=== PATIENT | male | born 1980 | race African-American/Black ===

== ENCOUNTER 2022-12-16 21:23 | Emergency (ER) | payer SELFPAY ==
--- OUTSIDE RECORDS SUMMARY | 2022-12-16 21:39 | XMS REPORT | Continuity of Care Document ---
:1980 Author Organization [facility] t Address [address] [place] [address] Care Team Providers Name Role Phone Marine Pérez Attending Clinician Marine CALIX Attending Clinician Unavailable Problems This patient has no known problems. Allergies, Adverse Reactions, Alerts Allergy Allergy Status Severity Reaction(s) Onset Inactive Treating Comm ents Source Name Type Date Date Clinician NO KNOWN Drug Active Univers ALLERGIE Class ity of S [facility] Social History Social Habit Start Date Stop Date Quantity Comments Source [facility] to SARS-[facility]-2 Not sure [facility] [place] [facility] Smoking Status Start Date Stop Date Source Unknown if [facility] Medications Ordered Filled Start Stop Current Ordering Indication Dosage Frequency Signature Comments Components Source Medication Medication Date Date Medication? Clinician (SIG) Name Name ibuprofen 2019-0 Yes [id number] 600mg Take 1 Univers 600 mg 6-20 tablet by ity of tablet 00:00: mouth [place] 00 every 6 Medical (six) Branch hours as needed for Pain (scale 4-6). cyclobenzap 2019-0 Yes [id number] 10mg Take 1 Univers rine 10 mg 6-20 tablet by ity of tablet 00:00: mouth 3 [place] 00 (three) Medical times Branch daily. Vital Signs Vital Name Observation Time Observation Value Comments Source Systolic blood 2020-02-08 01:52:00 178 mm[Hg] Univer sity of pressure [facility] Diastolic blood 2020-02-08 01:52:00 105 mm[Hg] Unive rsity of [facility] Heart rate 2020-02-08 01:52:00 100 /min [facility] Body temperature 2020-02-08 01:52:00 37.11 [facility]i [facility] Respiratory rate 2020-02-08 01:52:00 20 /min [facility] Body height 2020-02-08 01:52:00 193 cm Universi [facility] Body weight 2020-02-08 01:52:00 128.822 kg Universi [facility] BMI 2020-02-08 01:52:00 34.57 kg[facility]m2 [facility] saturation in 2020-02-08 01:52:00 100 /min [facility] Arterial blood by [facility] Pulse oximetry Branch Procedures Procedure Date / Time Performed Performing Clinician Sour e CONSENT/REFUSAL FOR 2020-02-08 01:37:30 Doctor Unassigned, No [facility] DIAGNOSIS AND Name [facility] TREATMENT NOTICE OF PRIVACY 2020-02-08 01:37:21 Doctor Unassigned, No Univ [facility] Name Medical [place] Encounters Start End Encounter Admission Attending Care Care Encounter Source Date/Time Date/Time Type Type Clinicians Facility Department ID 2020-02-07 2020-02-07 Emergency Marine Calix [facility] [id number] Univers 20:55:09 22:30:00 Frieda [place] [id number] i ty [facility] [id number] [facility] [id number] [facility] 084 Branch 2020-02-07 2020-02-07 Emergency X Marine CALIX [facility] ERT [id number] Univers 20:55:09 20:55:09 ity of [facility] Results This patient has no known results.
[2022-12-16] MEDS ORDERED: lisinopriL 20 MG TAB ONE (21:58)
[2022-12-16] MEDS ORDERED: NA CHLORIDE 0.9% 1,000 ML ONE (21:58)
[2022-12-16] MEDS ORDERED: ASPIRIN 325 MG TAB ONE (21:58)
[2022-12-16 22:27] LABS: Absolute Lymphocytes (CBC) 2.8 K/uL (0.7-4.9); Hematocrit 41.7 % (39.6-49.0); Lymphocytes % 36.5 % (15.3-44.8); MCV 93.5 fL (80-100); RBC Red Blood Cell Count 4.46 M/uL (4.33-5.43)
--- NOTE | 2022-12-16 22:41 | RAD REPORT ---
EXAM DESCRIPTION: RADChest Single View12/16/2022 10:24 pm CLINICAL HISTORY: CHEST PAIN COMPARISON: Chest Single View dated 11/25/2022 TECHNIQUE: Portable AP view of the chest. FINDINGS: The lungs are clear. No pneumothorax or effusion. The cardiomediastinal contours are unrem arkable. IMPRESSION: No acute cardiopulmonary process.
[2022-12-17 00:06] LABS: Protime INR 1.08
[2022-12-17 00:18] LABS: Albumin 3.4 g/dL (3.4-5.0); Bilirubin Direct 0.2 mg/dL (0-0.2); Bilirubin Total 0.7 mg/dL (0.2-1.0); Potassium 3.6 mEq/L (3.5-5.1); Protein, Total 6.6 g/dL (6.4-8.2); Troponin High Sensitivity 11.9 pg/mL (<58.9)
--- NOTE | 2022-12-17 01:49 | ER ---
Nurse's Notes [facility] Name: Sam Dejesus Age: 42 yrs Sex: Male : 1980 Arrival Date: 12/16/2022 Time: 21:23 Bed Treatment Private MD: Diagnosis: Essential (primary) hypertension;Noncardiac chest Presentation: 12/16 21:44 Chief complaint: Patient states: C/o of left side chest pain and SOB that started ll3 today. Pain radiated down to left leg. Onset of symptoms was December 16, 2022. 21:44 Method Of Arrival: Law Enforcement: [employer] ll3 21:44 Acuity: [place] 3 ll3 12/17 01:58 Coronavirus screen: At this time, the client does not indicate any symptoms associated ll3 with coronavirus-19. Ebola Screen: No symptoms or risks identified at this time. Initial Sepsis Screen: Does the patient meet any 2 criteria? No. Patient's initial sepsis screen is negative. Does the patient have a suspected source of infection? No. Patient's initial sepsis screen is negative. Risk Assessment: Do you want to hurt yourself or someone else? Patient reports no desire to harm self or others. Triage Assessment: 12/16 22:23 General: Appears in no apparent distress. well nourished. cg 22:24 Pain: Complains of pain in chest, left arm and left leg Pain radiates to left leg Pain cg currently is 5 out of 10 on a pain scale. Quality of pain is described as pressure. - Immunization history:: Adult Immunizations up to date. - Social history:: Patient/guardian denies using alcohol, street drugs, IV drugs, caffeine, over the counter diet medications, tobacco products. - Family history:: not pertinent. Screenin/30 01:56 [facility] ED Fall Risk Assessment (Adult) History of falling in the last 3 months, ll3 including since admission No falls in past 3 months (0 pts) Confusion or Disorientation No (0 pts) Intoxicated or Sedated No (0 pts) Impaired Gait No (0 pts) Mobility Assist Device Used No (0 pt) Altered Elimination No (0 pt) Score/Fall Risk Level 0 - 2 = Low Risk Oriented to surroundings, Maintained a safe environment, Educated pt \T\ family on fall prevention, incl call for assistance when getting out of bed. Abuse screen: Denies threats or abuse. Denies injuries from another. Nutritional screening: No deficits noted. Tuberculosis screening: No symptoms or risk factors identified. Assessment: 12/16 22:44 Cardiovascular: Reports chest pain, shortness of breath. cg 22:44 Pain: Complains of pain in chest and left arm. cg Vital Signs: 21:44 BP 150 / 84; Pulse 69; Resp 14; Temp 99.2; Pulse Ox 100% ; ll3 22:25 BP 146 / 76; Pulse 68; Resp 16; Temp 99.2; Pulse Ox 100% ; cg 12/17 01:57 BP 138 / 59; Pulse 72; Resp 16; Pulse Ox 100% on R/A; ll3 ED Course: 12/16 21:26 Patient arrived in ED. mr 21:40 Esvin Patel MD is Attending Physician. sp4 21:48 Triage completed. ll3 22:17 Basic Metabolic Panel Sent. cg 22:17 CBC with Diff Sent. cg 22:17 LFT's Sent. cg 22:17 NT PRO-BNP Sent. cg 22:17 PT-INR Sent. cg 22:17 Troponin HS Sent. cg 22:26 XRAY Chest (1 view) In Process Unspecified. EDMS 12/17 00:46 CT Aorta for Dissection In Process Unspecified. EDMS 01:56 No provider procedures requiring assistance completed. IV discontinued, intact, ll3 bleeding controlled, No redness/swelling at site. Pressure dressing applied. Patient maintains SpO2 saturation greater than 95% on room air. 01:56 Patient has correct armband on for positive identification. Bed in low position. Call ll3 light in reach. Side rails up X 1. Adult w/ patient. Client placed on continuous cardiac and pulse oximetry monitoring. NIBP monitoring applied. Administered Medications: 12/16 22:17 Drug: Aspirin PO 325 mg Route: PO; 12/17 01:57 Follow up: Response: No adverse reaction 3 12/16 22:17 Drug: Lisinopril PO 20 mg Route: PO; 12/17 01:57 Follow up: Response: No adverse reaction 3 12/16 22:17 Drug: NS 0.9% IV 1000 ml Route: IV; Rate: 1 bolus; Site: left antecubital; 12/17 01:57 Follow up: Response: No adverse reaction; IV Status: Completed infusion; IV Intake: ll3 1000ml Medication: 01:57 VIS not applicable for this client. ll3 Intake: 01:57 IV: 1000ml; Total: 1000ml. ll3 Outcome: 01:48 Discharge ordered by . sp4 01:56 Discharged to home ambulatory, with police ll3 01:56 Condition: stable 01:56 Discharge instructions given to patient, police, Instructed on discharge instructions, follow up and referral plans. medication usage, Demonstrated understanding of instructions, follow-up care, medications, Prescriptions given X 1. 01:58 Patient left the ED. ll3 Signatures: Dispatcher [employer] EDCO Sola Cindy RN RN Norma Payne RN RN ll3 Esvin Patel MD MD sp4 Corrections: (The following items were deleted from the chart) 12/16 22:25 22:25 PMHx: Seizure; cg cg 22:25 22:25 PMHx: Hypertensive disorder; cg cg
--- NOTE | 2022-12-17 01:49 | EDPHYS ---
Physician Documentation [facility] Name: Sam Dejesus Age: 42 yrs Sex: Male : 1980 Arrival Date: 12/16/2022 Time: 21:23 Bed Treatment Private MD: ED Physician Esvin Patel HPI: 12/16 21:40 This 42 yrs old Black Male presents to ER via Unassigned with complaints of Chest Pain, sp4 NUMBNESS IN LEFT UPPER/LOW EXT. 12/17 01:36 42-year-old incarcerated male with past medical history of hypertension presents with sp4 acute onset of left-sided stabbing chest pain associated with left arm numbness, pain was nonexertional in onset pain is moderate. . - Immunization history:: Adult Immunizations up to date. - Social history:: Patient/guardian denies using alcohol, street drugs, IV drugs, caffeine, over the counter diet medications, tobacco products. - Family history:: not pertinent. ROS: 01:36 Constitutional: Negative for fever, chills, and weight loss, Eyes: Negative for injury, sp4 pain, redness, and discharge, ENT: Negative for injury, pain, and discharge, Neck: Negative for injury, pain, and swelling, Cardiovascular: Negative for palpitations, and edema, positive for chest pain and left arm numbness Respiratory: Negative for shortness of breath, cough, wheezing, and pleuritic chest pain, Abdomen/GI: Negative for abdominal pain, nausea, vomiting, diarrhea, and constipation, Back: Negative for injury and pain, : Negative for injury, bleeding, discharge, and swelling, MS/Extremity: Negative for injury and deformity, Skin: Negative for injury, rash, and discoloration, Neuro: Negative for headache, weakness, tingling, and seizure, positive for left arm numbness Psych: Negative for depression, anxiety, Allergy/Immunology: Negative for hives, rash, and allergies Endocrine: Negative for neck swelling, polydipsia, polyuria, polyphagia, and weight changes Hematologic/Lymphatic: Negative for swollen nodes, abnormal bleeding, and unusual bruising Exam: 01:36 Constitutional: This is a well developed, well nourished patient who is awake, alert, sp4 and in no acute distress. Head/Face: Normocephalic, atraumatic. Eyes: Pupils equal round and reactive to light, extra-ocular motions intact. Lids and lashes normal. Conjunctiva and sclera are not injected. Cornea within normal limits. Periorbital areas with no swelling, redness, or edema. ENT: Nares patent. No nasal discharge, no septal abnormalities noted. Tympanic membranes are normal and external auditory canals are clear. Oropharynx with no redness, swelling, or masses, exudates, or evidence of obstruction, uvula midline. Mucous membranes moist. 01:42 Neck: Trachea midline, no thyromegaly or masses palpated, and no cervical sp4 lymphadenopathy. Supple, full range of motion without nuchal rigidity, or vertebral point tenderness. No Meningismus. Chest/axilla: Normal chest wall appearance and motion. Nontender with no deformity. No lesions are appreciated. Cardiovascular: Regular rate and rhythm with a normal S1 and S2. No gallops, murmurs, or rubs. Normal PMI, no JVD. No pulse deficits. Respiratory: Lungs have equal breath sounds bilaterally, clear to auscultation and percussion. No rales, rhonchi or wheezes noted. No increased work of breathing, no retractions or nasal flaring. Abdomen/GI: Soft, non-tender, with normal bowel sounds. No distension or tympany. No guarding or rebound. No evidence of tenderness throughout. Back: No spinal tenderness. No costovertebral tenderness. Skin: Warm, dry with normal turgor. Normal color with no rashes, no lesions, and no evidence of cellulitis. MS/ Extremity: Pulses equal, no cyanosis. Neurovascular intact. Full, normal range of motion. Neuro: Awake and alert, GCS 15, oriented to person, place, time, and situation. Cranial nerves II-XII grossly intact. Motor strength 5/5 in all extremities. Sensory grossly intact. Psych: Awake, alert, with orientation to person, place and time. Behavior, mood, and affect are within normal limits 01:42 ECG was reviewed by the Attending Physician. EKG time 2144, there is normal sinus rhythm at the rate of [address] elevation or depression, rightward axis, otherwise normal EKG. Vital Signs: 12/16 21:44 BP 150 / 84; Pulse 69; Resp 14; Temp 99.2; Pulse Ox 100% ; ll3 22:25 BP 146 / 76; Pulse 68; Resp 16; Temp 99.2; Pulse Ox 100% ; cg 12/17 01:57 BP 138 / 59; Pulse 72; Resp 16; Pulse Ox 100% on R/A; ll3 MDM: 12/16 21:41 Patient medically screened. [facility] 12/17 01:42 Differential diagnosis: abnormal EKG, acute pericarditis, anxiety, chest wall pain, sp4 costochondritis, esophagitis, gastritis. HEART Score: History: Slightly Suspicious (0), ECG: Normal (0), Age: < or = 45 years (0), Risk Factors: 1 or 2 risk factors (1), Troponin: < or = 1 x Normal Limit (0), Total Score = 1. The patient was given aspirin in the Emergency Department. Data reviewed: vital signs, nurses notes, old medical records, lab test result(s), EKG, radiologic studies, CT scan, plain films. ED course: Labs basically unremarkable, EKG is normal, no acute cardiopulmonary process on chest x-ray, CT aorta done to assess for aortic dissection, there is no acute aortic abnormality, no pulmonary embolism, no acute intrathoracic abdominal or pelvic abnormality, there is possible right hepatic hemangioma, mild to moderate stool burden, small hiatal hernia, remote fracture deformity of the left femur with prior screw fixation. At this time work-up is negative, suspicion for ACS is extremely low, patient will be started on lisinopril 20 mg p.o. daily, otherwise stable for discharge.. 12/16 21:41 Order name: Basic Metabolic Panel; Complete Time: 00: [facility] 12/16 21:41 Order name: CBC with Diff; Complete Time: 00: [facility] 12/16 21:41 Order name: LFT's; Complete Time: 00:35 [facility] 12/16 21:41 Order name: NT PRO-BNP; Complete Time: 00:35 [facility] 12/16 21:41 Order name: PT-INR; Complete Time: 00: [facility] 12/16 21:41 Order name: Troponin HS; Complete Time: 00: [facility] 12/16 21:41 Order name: XRAY Chest (1 view); Complete Time: 00: [facility] 12/16 21:47 Order name: CT Aorta for Dissection [facility] 12/16 21:41 Order name: EKG; Complete Time: 21:41 4 12/16 21:41 Order name: Cardiac monitoring; Complete Time: 22:18 4 12/16 21:41 Order name: EKG - Nurse/Tech; Complete Time: 22:18 4 12/16 21:41 Order name: IV Saline Lock; Complete Time: 22:18 4 12/16 21:41 Order name: Labs collected and sent; Complete Time: 22:18 4 12/16 21:41 Order name: O2 Per Protocol; Complete Time: 22:18 4 12/16 21:41 Order name: O2 Sat Monitoring; Complete Time: 22:18 sp4 EC:42 Rate is 62 beats/min. Rhythm is regular, Normal Sinus Rhythm. [place] interval is normal. sp4 QRS interval is normal. QT interval is normal. T waves are Normal. No ST changes noted. Clinical impression: Normal ECG. Interpreted by me. Administered Medications: 12/16 22:17 Drug: Aspirin PO 325 mg Route: PO; 12/17 01:57 Follow up: Response: No adverse reaction [facility] 12/16 22:17 Drug: Lisinopril PO 20 mg Route: PO; 12/17 01:57 Follow up: Response: No adverse reaction [facility] 12/16 22:17 Drug: NS 0.9% IV 1000 ml Route: IV; Rate: 1 bolus; Site: left antecubital; 12/17 01:57 Follow up: Response: No adverse reaction; IV Status: Completed infusion; IV Intake: ll3 1000ml Disposition Summary: 12/17/22 01:48 Discharge Ordered Location: Home sp4 Problem: new sp4 Symptoms: have improved sp4 Condition: Stable sp4 Diagnosis - Essential (primary) hypertension sp4 - Noncardiac chest sp4 Followup: sp4 - With: Private Physician - When: As needed - Reason: Continuance of care Discharge Instructions: - Discharge Summary Sheet sp4 - Hypertension, Adult sp4 Forms: - Thank You Letter sp4 Prescriptions: - Lisinopril 20 mg Oral Tablet - take 1 tablet by ORAL route once daily; 90 tablet; Refills: 0, Product sp4 Selection Permitted Signatures: Dispatcher [employer] Simba Barrera FNP-C FNP-Cla1 Arelne Hernández RN RN Esvin Shields MD MD sp4 Norma Garcia RN ll3 Corrections: (The following items were deleted from the chart) 12/16 22:25 PMHx: Seizure; cg cg 22: PMHx: Hypertensive disorder; cg cg
[2022-12-17 02:03] VITALS: TEMP 99.2; O2SAT 100
[2022-12-17 02:06] VITALS: BP 138/59
--- NOTE | 2022-12-18 11:41 | RAD REPORT ---
EXAM DESCRIPTION: CT - Angio Aorta For Dissection - 12/17/2022 7:24 am CLINICAL HISTORY: The patient is 42 years old and is Male; chest pains TECHNIQUE: Axial computed tomographic angiography images of the chest, abdomen and pelvis with intra venous contrast. This CT exam was performed using one or more of the following dose reduction techn iques: automated exposure control, adjustment of the mA and/or kV according to patient size, and/or use of iterative reconstruction technique. MIP reconstructed images were created and reviewed. DLP: 1352 mGy*cm COMPARISON: Chest radiograph of the same day. FINDINGS: VASCULATURE: AORTA: No acute findings. No aortic aneurysm. No dissection. PULMONARY ARTERIES: Unremarkable as visualized. No pulmonary embolism is identified. GREAT VESSELS OF AORTIC ARCH: No acute findings. No dissection. No arterial occlusion or signif icant stenosis. CELIAC TRUNK AND MESENTERIC ARTERIES: No acute findings. No occlusion or significant stenosis. RENAL ARTERIES: No acute findings. No occlusion or significant stenosis. ILIAC ARTERIES: No acute findings. No occlusion or significant stenosis. CHEST: LUNGS: Unremarkable. No mass. No consolidation. PLEURAL SPACE: Unremarkable. No significant effusion. No pneumothorax. HEART: Unremarkable. No cardiomegaly. No significant pericardial effusion. MEDIASTINUM: Small hiatal hernia. ABDOMEN: LIVER: Enhancing right hepatic ill-defined abnormality measuring 2.3 cm, hemangioma. GALLBLADDER AND BILE DUCTS: Contracted gallbladder. No calcified stones. No ductal dilation. PANCREAS: Unremarkable. No ductal dilation. No mass. SPLEEN: Unremarkable. No splenomegaly. ADRENALS: Unremarkable. No mass. KIDNEYS AND URETERS: Unremarkable. No hydronephrosis. No solid mass. STOMACH AND BOWEL: Mild to moderate stool burden. No obstruction. No mucosal thickening. PELVIS: APPENDIX: The appendix is seen and is within normal limits. BLADDER: Unremarkable. No mass. REPRODUCTIVE: Unremarkable as visualized. CHEST, ABDOMEN and PELVIS: INTRAPERITONEAL SPACE: Unremarkable. No significant fluid collection. No free air. BONES/JOINTS: Remote fracture deformity of the left femur with prior screw fixation. Advanced left hip degenerative changes. Multilevel lumbar degenerative changes. No dislocation. SOFT TISSUES: Unremarkable. LYMPH NODES: Unremarkable. No enlarged lymph nodes. IMPRESSION: 1. No acute aortic abnormality. No pulmonary embolism. 2. No acute intrathoracic, abdominal or pelvic abnormality. 3. Enhancing right hepatic ill-defined abnormality measuring 2.3 cm, hemangioma. 4. Mild to moderate stool burden. Correlate for constipation. 5. Small hiatal hernia. 6. Remote fracture deformity of the left femur with prior screw fixation. Advanced left hip degener ative changes. Electronically signed by: Kulwinder Stout DO 12/17/2022 1:11 AM CDT Due to temporary technical issues with the PACS/Fluency reporting system, reports are being signed by the in house radiologist without review as a courtesy to ensure prompt reporting. The interpreting r adiologist is fully responsible for the content of the report.
--- NOTE | 2022-12-18 12:41 | EKG ---
Test Date: 2022-12-16 Test Time: 21:45:36 [place] [employer] Operator: TK MEASUREMENT RESULTS: Intervals: Rate: 62 MT: 170 QRSD: 82 QT: 364 QTc: 369 [place]: P: 12 MT: 170 QRS: 92 T: 43 INTERPRETIVE STATEMENTS: Normal sinus rhythm Rightward axis Borderline ECG Compared to ECG 11/25/2022 16:21:54 Right-axis deviation now present Fusion complex(es) no longer present Electronically Signed On 12-18-22 12:37:22 CDT by Reji Razo
== END 2022-12-17 01:58 | disposition home or self-care (01) ==
LOC: ER 21:23
DX: R07.89 Other chest pain (principal); I10 Essential (primary) hypertension
CPT/HCPCS: 36415; 71045; 71275; 74175; 80048; 80076; 83880; 84484; 85025; 85610; 93005; 96360; 96361; 99285; J7030; Q9967